=== PATIENT | female | born 1960 | race Native Hawaiian/Other Pacific Islander ===

== ENCOUNTER 2016-07-10 18:36 | Emergency (ER) | payer OTHER ==
[~2016-07-10] VITALS: Ht 160 cm; Wt 68.0 kg
[~2016-07-10 18:36] MED LIST: ALBUTEROL0.083 % IN; AMBIEN5 MG PO; AMITRIPTYLIN100 MG PO; FENT12DI3 TD; FLUO10CA2 PO; NORCO1 TA2 PO; OXYCODONE30 MG PO; PREVACID30 M1 PO; PROAIR HFA IN; TRIM800T12 PO; UNITH DIRECT150 MCG PO; UNITHROID175 MCG PO
[2016-07-10 19:12] LABS: PLATELET COUNT 357 K/uL (152-353)
[2016-07-10 19:22] LABS: POTASSIUM 4.4 mmol/L (3.6-5.2); SODIUM 134 mmol/L (136-145)
[2016-07-10 20:08] VITALS: BP 154/104; TEMP 98.2
== END 2016-07-10 20:11 | disposition home or self-care (01) ==
LOC: ED 18:36
DX: R07.89 Other chest pain (principal); J44.1 Chronic obstructive pulmonary disease with (acute) exacerbation; Z79.899 Other long term (current) drug therapy
CPT/HCPCS: 36415; 80053; 80307; 81000; 82550; 84484; 85027; 86318; 93005; 96372; 99283; G0479; J1100

== ENCOUNTER 2017-06-28 11:05 | Outpatient (CLI) | payer OTHER | END 2017-06-28 19:22 | disposition home or self-care (01) | LOC: MAMMO 11:05 | DX: Z12.31 Encounter for screening mammogram for malignant neoplasm of breast (principal) ==

== ENCOUNTER 2017-07-18 10:01 | Outpatient (CLI) | payer OTHER | END 2017-07-18 19:55 | disposition home or self-care (01) | LOC: MAMMO 10:01 | DX: R92.8 Other abnormal and inconclusive findings on diagnostic imaging of breast (principal) ==

== ENCOUNTER 2017-11-06 15:59 | Outpatient (CLI) | payer OTHER | END 2017-11-06 16:05 | disposition short-term general hospital (02) | LOC: AMB 15:59 | DX: R40.20 Unspecified coma (principal); R06.09 Other forms of dyspnea; T50.991A Poisoning by other drugs, medicaments and biological substances, accidental (unintentional), initial encounter; Y92.098 Other place in other non-institutional residence as the place of occurrence of the external cause | CPT/HCPCS: A0425; A0427 ==

== ENCOUNTER 2017-11-06 16:05 | Inpatient (IN) | payer OTHER ==
[~2017-11-06] VITALS: Ht 160 cm; Wt 87.6 kg
[2017-11-06] VITALS (14 sets, daily range): BP systolic 83–150; BP diastolic 41–110; TEMP 98–99.1; Ht 160 cm; Wt 87.6 kg
[2017-11-06 17:28] LABS: PLATELET COUNT 284 K/uL (152-353)
[2017-11-06 17:47] LABS: POTASSIUM 4.7 mmol/L (3.6-5.2)
[2017-11-07] VITALS (34 sets, daily range): BP systolic 96–139; BP diastolic 64–94; TEMP 97.8–99.5
[2017-11-07 06:58] LABS: PLATELET COUNT 217 K/uL (152-353)
[2017-11-07 07:49] LABS: POTASSIUM 5.1 mmol/L (3.6-5.2)
[2017-11-08] VITALS (21 sets, daily range): BP systolic 116–161; BP diastolic 85–105; TEMP 97.7–98.9
[2017-11-08 06:32] LABS: PLATELET COUNT 204 K/uL (152-353)
[2017-11-08 09:45] LABS: POTASSIUM 3.9 mmol/L (3.6-5.2)
[2017-11-08] MEDS ORDERED: CETIRIZINE10 MG PO (15:28)
[2017-11-08] MEDS ORDERED: PREDNISONE10 M2 PO (15:31)
[2017-11-08] MEDS ORDERED: FAMOTIDINE40 MG PO (15:32)
[2017-11-08] MEDS ORDERED: LIPITOR10 MG PO (15:34)
[2017-11-08] MEDS ORDERED: GABA300C2 PO (15:35)
[2017-11-08] MEDS ORDERED: CLON1TAB18 PO (15:48)
[2017-11-08] MEDS ORDERED: CHANTIX STARTIN0.5 & PO (15:49)
[2017-11-08] MEDS ORDERED: KETOROLAC10 MG PO (15:52)
[2017-11-09] VITALS (22 sets, daily range): BP systolic 106–172; BP diastolic 62–108; TEMP 97.6–99.2
[2017-11-09 07:12] LABS: PLATELET COUNT 188 K/uL (152-353)
[2017-11-09 07:24] LABS: POTASSIUM 3.3 mmol/L (3.6-5.2)
[2017-11-10] VITALS (23 sets, daily range): BP systolic 127–162; BP diastolic 79–114; TEMP 91–99.3
[2017-11-10 07:13] LABS: PLATELET COUNT 157 K/uL (152-353)
[2017-11-10 07:21] LABS: POTASSIUM 3.9 mmol/L (3.6-5.2)
[2017-11-11] VITALS (24 sets, daily range): BP systolic 114–169; BP diastolic 57–113; TEMP 98–100.4
[2017-11-11 05:50] LABS: PLATELET COUNT 161 K/uL (152-353)
[2017-11-11 05:58] LABS: POTASSIUM 2.9 mmol/L (3.6-5.2)
[2017-11-12] VITALS (24 sets, daily range): BP systolic 142–184; BP diastolic 80–103; TEMP 97.9–100.2
[2017-11-12 06:21] LABS: PLATELET COUNT 171 K/uL (152-353)
[2017-11-12 06:32] LABS: POTASSIUM 3.1 mmol/L (3.6-5.2)
[2017-11-13] VITALS (19 sets, daily range): BP systolic 127–171; BP diastolic 77–106; TEMP 97.8–98.7
[2017-11-13 06:24] LABS: PLATELET COUNT 238 K/uL (152-353)
[2017-11-13 06:25] LABS: POTASSIUM 3.3 mmol/L (3.6-5.2)
[2017-11-14] VITALS (19 sets, daily range): BP systolic 104–182; BP diastolic 59–100; TEMP 97.3–99.2
[2017-11-14 05:22] LABS: PLATELET COUNT 268 K/uL (152-353)
[2017-11-14 05:36] LABS: POTASSIUM 3.2 mmol/L (3.6-5.2)
[2017-11-15] VITALS (14 sets, daily range): BP systolic 123–164; BP diastolic 76–104; TEMP 97.4–99.4
[2017-11-15 06:41] LABS: PLATELET COUNT 256 K/uL (152-353)
[2017-11-15 06:50] LABS: POTASSIUM 3.1 mmol/L (3.6-5.2)
[2017-11-16] VITALS (7 sets, daily range): BP systolic 121–174; BP diastolic 64–98; TEMP 97.8–99.6
[2017-11-16 04:44] LABS: PLATELET COUNT 270 K/uL (152-353)
[2017-11-16 04:54] LABS: POTASSIUM 3.3 mmol/L (3.6-5.2)
[2017-11-17 04:00] VITALS: BP 151/85; TEMP 98.5
[2017-11-17 05:52] LABS: PLATELET COUNT 271 K/uL (152-353)
[2017-11-17 08:00] VITALS: BP 134/82; TEMP 98
[2017-11-17 12:00] VITALS: BP 116/65; TEMP 98.3
[2017-11-17 16:00] VITALS: BP 123/79; TEMP 98.3
[2017-11-17 20:00] VITALS: BP 121/76; TEMP 98.2
[2017-11-18] VITALS: BP 136/74; TEMP 98
[2017-11-18 04:00] VITALS: BP 125/80; TEMP 98.9
[2017-11-18 06:01] LABS: PLATELET COUNT 203 K/uL (152-353)
[2017-11-18 06:05] LABS: POTASSIUM 3.6 mmol/L (3.6-5.2)
[2017-11-18 08:00] VITALS: BP 135/88; TEMP 98.6
[2017-11-18 12:00] VITALS: BP 103/58; TEMP 98.8
[2017-11-18 16:00] VITALS: BP 126/84; TEMP 98.8
[2017-11-18 20:00] VITALS: BP 125/65; TEMP 99.3
[2017-11-19] VITALS (7 sets, daily range): BP systolic 99–141; BP diastolic 54–87; TEMP 98.2–99.7
[2017-11-19 08:17] LABS: PLATELET COUNT 310 K/uL (152-353)
[2017-11-19 08:57] LABS: POTASSIUM 3.4 mmol/L (3.6-5.2)
[2017-11-20 05:42] LABS: PLATELET COUNT 385 K/uL (152-353)
[2017-11-20 07:43] VITALS: BP 121/81; TEMP 97.7
[2017-11-20 11:49] VITALS: BP 121/85; TEMP 97.9
[2017-11-20 16:12] VITALS: BP 105/72; TEMP 98.4
[2017-11-20 20:00] VITALS: BP 117/85; TEMP 98.7
[2017-11-21 00:28] VITALS: BP 140/75; TEMP 98.4
[2017-11-21 04:02] VITALS: BP 155/100; TEMP 98.4
[2017-11-21 05:37] LABS: PLATELET COUNT 408 K/uL (152-353)
[2017-11-21 06:40] LABS: POTASSIUM 6.1 mmol/L (3.6-5.2)
[2017-11-21 08:00] VITALS: BP 132/75; TEMP 98
[2017-11-21 12:22] VITALS: BP 138/84; TEMP 98.1
== END 2017-11-21 13:20 | disposition home or self-care (01) | DRG 177 ==
LOC: ED 16:05 → ICU 19:05 → MED/SURG 11-15 14:19
PROVIDERS: Family Medicine; Nurse Practitioner Family
DX: J69.0 Pneumonitis due to inhalation of food and vomit (principal); J96.00 Acute respiratory failure, unspecified whether with hypoxia or hypercapnia; E87.4 Mixed disorder of acid-base balance; B95.7 Other staphylococcus as the cause of diseases classified elsewhere; T42.4X1A Poisoning by benzodiazepines, accidental (unintentional), initial encounter; T40.2X1A Poisoning by other opioids, accidental (unintentional), initial encounter; S20.219A Contusion of unspecified front wall of thorax, initial encounter; S00.83XA Contusion of other part of head, initial encounter; W18.39XA Other fall on same level, initial encounter; Y92.230 Patient room in hospital as the place of occurrence of the external cause; G89.29 Other chronic pain; N18.3 Chronic kidney disease, stage 3 (moderate); R45.1 Restlessness and agitation; F17.210 Nicotine dependence, cigarettes, uncomplicated
CPT/HCPCS: 36415; 36600; 51702; 80053; 80061; 80202; 80307; 81000; 82805; 82962; 83605; 84443; 84484; 85027; 85379; 87070; 87077; 87185; 87186; 87205; 87324; 87328; 87329; 87449; 93005; 94640; 94664; 94760; 96360; 96372; 96375; 96376; 99285; J0696; J1200; J1630; J1650; J1720; J1815; J1940; J1956; J2060; J2250; J2310; J2405; J2543; J2930; J3370; J3480; J3486; J3490; J7120; Q9963

== ENCOUNTER 2018-01-24 10:11 | Outpatient (CLI) | payer OTHER ==
[~2018-01-24 10:11] MED LIST changes: +CETIRIZINE10 MG PO; +CHANTIX STARTIN0.5 & PO; +CLON1TAB18 PO; +FAMOTIDINE40 MG PO; +GABA300C2 PO; +KETOROLAC10 MG PO; +LIPITOR10 MG PO; +PREDNISONE10 M2 PO
== END 2018-01-24 19:26 | disposition home or self-care (01) ==
LOC: MAMMO 10:11
DX: N60.19 Diffuse cystic mastopathy of unspecified breast (principal); R92.8 Other abnormal and inconclusive findings on diagnostic imaging of breast

== ENCOUNTER 2018-07-13 13:11 | Outpatient (CLI) | payer OTHER | END 2018-07-13 19:45 | disposition home or self-care (01) | LOC: RAD 13:11 | DX: J44.1 Chronic obstructive pulmonary disease with (acute) exacerbation (principal) ==

== ENCOUNTER 2018-08-27 15:49 | Inpatient (IN) | payer OTHER ==
[~2018-08-27] VITALS: Ht 160 cm; Wt 96.8 kg
[2018-08-27 15:55] VITALS: BP 127/79; TEMP 98.1
[2018-08-27 16:18] LABS: PLATELET COUNT 183 K/uL (152-353)
[2018-08-27 16:41] LABS: SODIUM 134 mmol/L (136-145)
[2018-08-27 20:57] VITALS: BP 127/81; TEMP 97.4
[2018-08-27 21:39] VITALS: BP 127/81; TEMP 98; Ht 160 cm; Wt 96.8 kg
[2018-08-28] VITALS: BP 105/65; TEMP 97.4
[2018-08-28 02:41] LABS: PARTIAL THROMBOPLASTIN TIME 24.6 SECONDS (24.5-33.6)
[2018-08-28 04:40] VITALS: BP 81/52; TEMP 98.1
[2018-08-28 08:00] VITALS: BP 97/74; TEMP 98.4
[2018-08-28 08:58] LABS: PLATELET COUNT 186 K/uL (152-353)
[2018-08-28 09:19] LABS: POTASSIUM 4.2 mmol/L (3.6-5.2); SODIUM 134 mmol/L (136-145)
[2018-08-28 12:00] VITALS: BP 96/68; TEMP 97.7
[2018-08-28 16:00] VITALS: BP 85/43; TEMP 97.7
[2018-08-28 20:00] VITALS: BP 99/63; TEMP 98.4
[2018-08-29] VITALS: BP 133/73; TEMP 98.2
[2018-08-29 04:00] VITALS: BP 97/53; TEMP 98.2
[2018-08-29 05:11] LABS: PLATELET COUNT 206 K/uL (152-353)
[2018-08-29 06:14] LABS: POTASSIUM 4.7 mmol/L (3.6-5.2)
[2018-08-29 08:00] VITALS: BP 98/59; TEMP 97.6
[2018-08-29 12:00] VITALS: BP 102/65; TEMP 97.6
[2018-08-29 16:00] VITALS: BP 121/70; TEMP 97.6
[2018-08-29 20:00] VITALS: BP 112/73; TEMP 98.2
[2018-08-30] VITALS: BP 124/73; TEMP 98.2
[2018-08-30 04:00] VITALS: BP 115/60; TEMP 98.2
[2018-08-30 05:55] LABS: PLATELET COUNT 208 K/uL (152-353)
[2018-08-30 06:35] LABS: POTASSIUM 4.3 mmol/L (3.6-5.2)
[2018-08-30 08:00] VITALS: BP 117/71; TEMP 98.3
[2018-08-30] MEDS ORDERED: FOLI1TAB26 PO (11:39)
[2018-08-30 12:00] VITALS: BP 110/66; TEMP 98.1
== END 2018-08-30 14:10 | disposition home or self-care (01) | DRG 683 ==
LOC: ED 15:49 → MED/SURG 18:30
PROVIDERS: Family Medicine; ADMIT Emergency Medicine
DX: I12.9 Hypertensive chronic kidney disease with stage 1 through stage 4 chronic kidney disease, or unspecified chronic kidney disease (principal); N17.8 Other acute kidney failure; N18.4 Chronic kidney disease, stage 4 (severe); J44.9 Chronic obstructive pulmonary disease, unspecified; E78.49 Other hyperlipidemia; E03.8 Other specified hypothyroidism; G89.4 Chronic pain syndrome; E66.8 Other obesity; Z91.14 Patient's other noncompliance with medication regimen; D50.8 Other iron deficiency anemias; Z68.37 Body mass index [BMI] 37.0-37.9, adult; Z71.3 Dietary counseling and surveillance; F17.200 Nicotine dependence, unspecified, uncomplicated
CPT/HCPCS: 36415; 36591; 80053; 81000; 82272; 82550; 82553; 82607; 82728; 82746; 83540; 83550; 83880; 84436; 84439; 84443; 84484; 85027; 85610; 85730; 93005; 94640; 94664; 94760; 99284; J1940

== ENCOUNTER 2018-09-13 08:18 | Outpatient (CLI) | payer OTHER ==
[~2018-09-13 08:18] MED LIST changes: +FOLI1TAB26 PO
[2018-09-13 09:29] LABS: PLATELET COUNT 296 K/uL (152-353)
[2018-09-13 09:52] LABS: POTASSIUM 4.6 mmol/L (3.6-5.2)
== END 2018-09-13 20:59 | disposition home or self-care (01) ==
LOC: US 08:18
PROVIDERS: Internal Medicine
DX: E03.8 Other specified hypothyroidism (principal); Z79.899 Other long term (current) drug therapy; N18.4 Chronic kidney disease, stage 4 (severe); R53.82 Chronic fatigue, unspecified; M10.9 Gout, unspecified
CPT/HCPCS: 36415; 80053; 80074; 81000; 82043; 82330; 82552; 82570; 82728; 83036; 83516; 83735; 83970; 84100; 84155; 84165; 84550; 85027; 85651; 86038; 86141; 86160; 86225; 86235; 86255; 86430

== ENCOUNTER 2018-12-14 08:13 | Outpatient (CLI) | payer OTHER ==
[2018-12-14 08:55] LABS: PLATELET COUNT 257 K/uL (152-353)
[2018-12-14 09:14] LABS: POTASSIUM 4.2 mmol/L (3.6-5.2)
== END 2018-12-14 19:06 | disposition home or self-care (01) ==
LOC: LABW 08:13
PROVIDERS: Internal Medicine
DX: N18.4 Chronic kidney disease, stage 4 (severe) (principal); N25.81 Secondary hyperparathyroidism of renal origin; E03.8 Other specified hypothyroidism
CPT/HCPCS: 36415; 80053; 81000; 82306; 82330; 83735; 83970; 84100; 84439; 84443; 85027

== ENCOUNTER 2018-12-27 10:17 | Outpatient (CLI) | payer OTHER | END 2018-12-27 23:52 | disposition home or self-care (01) | LOC: MAMMO 10:17 | DX: N60.11 Diffuse cystic mastopathy of right breast (principal); N60.12 Diffuse cystic mastopathy of left breast ==

== ENCOUNTER 2019-05-23 09:21 | Outpatient (CLI) | payer OTHER ==
[2019-05-23 09:55] LABS: PLATELET COUNT 268 K/uL (152-353)
[2019-05-23 10:17] LABS: POTASSIUM 4.5 mmol/L (3.6-5.2)
== END 2019-05-23 19:38 | disposition home or self-care (01) ==
LOC: LABW 09:21
PROVIDERS: Internal Medicine
DX: N18.4 Chronic kidney disease, stage 4 (severe) (principal); N25.81 Secondary hyperparathyroidism of renal origin; E03.8 Other specified hypothyroidism
CPT/HCPCS: 36415; 80053; 81000; 82306; 82330; 82570; 83735; 83970; 84100; 84155; 84439; 84443; 85027

== ENCOUNTER 2019-05-27 11:26 | Outpatient (CLI) | payer OTHER | END 2019-05-27 11:31 | disposition short-term general hospital (02) | LOC: AMB 11:26 | DX: R46.4 Slowness and poor responsiveness (principal) | CPT/HCPCS: A0425; A0427 ==

== ENCOUNTER 2019-05-27 11:32 | Emergency (ER) | payer OTHER ==
[~2019-05-27] VITALS: Ht 160 cm; Wt 96.6 kg
[2019-05-27 11:32] VITALS: TEMP 97.5
[2019-05-27 12:00] LABS: PLATELET COUNT 280 K/uL (152-353)
[2019-05-27 12:04] LABS: POTASSIUM 4.6 mmol/L (3.6-5.2); SODIUM 136 mmol/L (136-145)
[2019-05-27 16:25] VITALS: BP 118/76
== END 2019-05-27 16:25 | disposition home or self-care (01) ==
LOC: ED 11:41
PROVIDERS: Student in an Organized Health Care Education/Training Program
DX: R40.4 Transient alteration of awareness (principal); N18.4 Chronic kidney disease, stage 4 (severe); R00.0 Tachycardia, unspecified
CPT/HCPCS: 36600; 80053; 80307; 80320; 80329; 81000; 81025; 82140; 82805; 82962; 83735; 84484; 85027; 93005; 96360; 96375; 99284

== ENCOUNTER 2019-10-21 10:05 | Outpatient (CLI) | payer OTHER ==
[2019-10-21 10:26] LABS: PLATELET COUNT 270 K/uL (152-353)
[2019-10-21 10:42] LABS: POTASSIUM 3.8 mmol/L (3.6-5.2)
== END 2019-10-21 19:52 | disposition home or self-care (01) ==
LOC: LABW 10:05
PROVIDERS: Internal Medicine
DX: E03.8 Other specified hypothyroidism (principal); N18.4 Chronic kidney disease, stage 4 (severe); N25.81 Secondary hyperparathyroidism of renal origin
CPT/HCPCS: 36415; 80053; 81000; 82306; 82330; 82570; 83735; 83970; 84100; 84155; 84439; 84443; 85027

== ENCOUNTER 2019-11-14 11:36 | Outpatient (CLI) | payer OTHER ==
[~2019-11-14] VITALS: Ht 160 cm; Wt 77.1 kg
[2019-11-14 11:45] VITALS: BP 84/62; TEMP 98.7
== END 2019-11-14 14:08 | disposition home or self-care (01) ==
LOC: INF 11:36
DX: E86.0 Dehydration (principal)
CPT/HCPCS: 96360; 96361

== ENCOUNTER 2020-08-12 11:29 | Outpatient (CLI) | payer OTHER ==
[2020-08-12 11:57] LABS: PLATELET COUNT 372 K/uL (152-353)
[2020-08-12 12:22] LABS: POTASSIUM 4.2 mmol/L (3.6-5.2)
== END 2020-08-12 22:03 | disposition home or self-care (01) ==
LOC: LABW 11:29
PROVIDERS: ATTEND Nurse Practitioner
DX: N18.4 Chronic kidney disease, stage 4 (severe) (principal); N25.81 Secondary hyperparathyroidism of renal origin; E03.8 Other specified hypothyroidism
CPT/HCPCS: 36415; 80053; 81000; 82306; 82330; 82570; 83735; 83970; 84100; 84155; 84439; 84443; 85027

== ENCOUNTER 2021-03-04 15:33 | Outpatient (CLI) | payer OTHER ==
[2021-03-04 16:21] LABS: POTASSIUM 3.5 mmol/L (3.6-5.2)
[2021-03-04 16:23] LABS: PLATELET COUNT 345 K/uL (152-353)
== END 2021-03-04 20:20 | disposition home or self-care (01) ==
LOC: LABW 15:33
PROVIDERS: ATTEND Internal Medicine
DX: N18.4 Chronic kidney disease, stage 4 (severe) (principal); E03.8 Other specified hypothyroidism; N25.81 Secondary hyperparathyroidism of renal origin
CPT/HCPCS: 36415; 80053; 81000; 82306; 82330; 82570; 83735; 84100; 84155; 84439; 84443; 85027

== ENCOUNTER 2021-11-09 09:18 | Outpatient (CLI) | payer OTHER ==
[2021-11-09 09:56] LABS: POTASSIUM 5.1 mmol/L (3.6-5.2)
[2021-11-09 10:15] LABS: PLATELET COUNT 260 K/uL (152-353)
== END 2021-11-09 19:13 | disposition home or self-care (01) ==
LOC: LABW 09:18
PROVIDERS: ATTEND Internal Medicine
DX: N18.4 Chronic kidney disease, stage 4 (severe) (principal)
CPT/HCPCS: 36415; 80053; 81002; 82043; 82570; 83735; 84100; 84156; 85027

== ENCOUNTER 2022-02-16 09:23 | Outpatient (CLI) | payer OTHER ==
[2022-02-16 09:46] LABS: PLATELET COUNT 292 K/uL (152-353)
== END 2022-02-16 23:22 | disposition home or self-care (01) ==
LOC: LABW 09:23
PROVIDERS: ATTEND Family Medicine
DX: N18.4 Chronic kidney disease, stage 4 (severe) (principal); Z79.899 Other long term (current) drug therapy
CPT/HCPCS: 36415; 83036; 85027

== ENCOUNTER 2022-05-27 09:47 | Outpatient (CLI) | payer OTHER ==
[2022-05-27 10:10] LABS: PLATELET COUNT 306 K/uL (152-353)
[2022-05-27 10:54] LABS: POTASSIUM 4.3 mmol/L (3.6-5.2)
== END 2022-05-27 19:52 | disposition home or self-care (01) ==
LOC: LABW 09:47
PROVIDERS: ATTEND Internal Medicine
DX: N18.4 Chronic kidney disease, stage 4 (severe) (principal); E03.8 Other specified hypothyroidism; N25.81 Secondary hyperparathyroidism of renal origin; Z79.899 Other long term (current) drug therapy
CPT/HCPCS: 36415; 80053; 81002; 82043; 82306; 82330; 82550; 82570; 83036; 83735; 83970; 84100; 84156; 84439; 84443; 84550; 85027

== ENCOUNTER 2022-09-13 10:55 | Outpatient (CLI) | payer OTHER ==
[2022-09-13 11:13] LABS: PLATELET COUNT 223 K/uL (152-353)
[2022-09-13 14:06] LABS: POTASSIUM 3.5 mmol/L (3.6-5.2)
== END 2022-09-13 18:58 | disposition home or self-care (01) ==
LOC: LABW 10:55
PROVIDERS: ATTEND Internal Medicine
DX: N18.4 Chronic kidney disease, stage 4 (severe) (principal); E03.8 Other specified hypothyroidism; Z79.899 Other long term (current) drug therapy
CPT/HCPCS: 36415; 80053; 81002; 82043; 82330; 82550; 82570; 83036; 83735; 83970; 84100; 84156; 84439; 84443; 84550; 85027